=== PATIENT | female | born 1990 | race Caucasian/White ===

== ENCOUNTER 2018-07-03 14:29 | Emergency (ER) | payer MEDICAID ==
[2018-07-03 14:45] VITALS: BP 112/80
--- NOTE | 2018-07-03 15:46 | EDM.PDOC ---
ED HPI GENERAL MEDICAL PROBLEM - General Chief Complaint: [employer] Problem Stated Complaint: ABNORMAL VAGINAL BLEEDING Time Seen by Provider: 07/03/18 15:10 Source of Information: Reports: Patient History Limitations: Reports: No Limitations - History of Present Illness INITIAL COMMENTS - FREE TEXT/NARRATIVE: Birgit presents today for complaints of sudden low pelvic pain, abnormal vaginal bleeding with large blood clots. She reports she was in to urgent care today, had a PAP, STI testing performed around 0900. She went to work and develop sudden vaginal bleeding with large clots and pain. Uterine Pain Score (Numeric/FACES): 5 - Related Data Allergies Allergy/AdvReac Type Severity Reaction Status Date / Time Penicillins Allergy Hives Verified 07/03/18 14:42 Home Meds: Home Meds metFORMIN [Glucophage] 1,000 mg PO BID 07/03/18 [History] Past Medical History HEENT History: Reports: Impaired Vision Respiratory History: Reports: Asthma [employer] History: Reports: Polycystic Ovaries, Psychiatric History: Reports: Depression Endocrine/Metabolic History: Reports: Other (See Below) Other Endocrine/Metabolic History: pituitary gland mass dx 03/10 Dermatologic History: Reports: Other (See Below) Other Dermatologic History: yeasty rash on chest - Infectious Disease History Infectious Disease History: Reports: Chicken Pox - Past Surgical History Female Surgical History: Reports: Section Social & Family History - Tobacco Use Smoking Status *Q: Current Every Day Smoker Years of Tobacco use: 15 Packs/Tins Daily: 1 - Caffeine Use Caffeine Use: Reports: Soda - Recreational Drug Use Recreational Drug Use: No ED ROS GENERAL - Review of Systems Review Of Systems: See Below Constitutional: Denies: Fever, Chills, Malaise, Weakness HEENT: Reports: No Symptoms Respiratory: Reports: No Symptoms Cardiovascular: Reports: No Symptoms Endocrine: Reports: No Symptoms GI/Abdominal: Reports: Abdominal Pain. Denies: Constipation, Diarrhea, Nausea, Vomiting : Reports: Pain, Other (Low pelvic pain, abnormal vaginal bleeding with clots size of quarter) Musculoskeletal: Reports: No Symptoms Skin: Reports: No Symptoms Neurological: Reports: No Symptoms Psychiatric: Reports: No Symptoms Hematologic/Lymphatic: Reports: No Symptoms Immunologic: Reports: No Symptoms ED EXAM, RENAL/ - Physical Exam Exam: See Below Text/Narrative:: Birgit is an alert and oriented 28 year old female presenting for complaints of acute low pelvic pain this morning at work after she was in to the clinic for STI checking. Exam Limited By: No Limitations General Appearance: Alert, WD/WN, Mild Distress Eye Exam: Bilateral Eye: EOMI, Normal Inspection, PERRL Head: Atraumatic, Normocephalic Neck: Normal Inspection, Supple, Non-Tender, Full Range of Motion. No: Lymphadenopathy (R), Lymphadenopathy (L) Respiratory/Chest: No Respiratory Distress, Lungs Clear, Normal Breath Sounds, No Accessory Muscle Use, Chest Non-Tender Cardiovascular: Normal Peripheral Pulses, Regular Rate, Rhythm, No Edema, No Gallop, No Murmur, No Rub GI/Abdominal: Normal Bowel Sounds, No Organomegaly, No Distention, Tender, Other (Tenderness to pelvis with palpation. Negative Wet prep in clinic, STI testing pending from [facility]. No dysuria or chagne in bladder function. ). No: Guarding, Rigid (Female) Exam: Normal External Exam, Adnexal Tenderness, Cervix Motion Tenderness, Vaginal Bleeding. No: Adnexal Mass, Cervical Dilatation, Cervical Lesions, Vaginal Lesions, Vaginal Tears Back Exam: Normal Inspection, Full Range of Motion. No: CVA Tenderness (R), CVA Tenderness (L) Extremities: Normal Inspection, Normal Range of Motion, Non-Tender, No Pedal Edema, Normal Capillary Refill Neurological: Alert, Oriented, CN II-XII Intact, Normal Cognition, Normal Gait, Normal Reflexes, No Motor/Sensory Deficits Psychiatric: Normal Affect, Normal Mood Skin Exam: Warm, Dry, Intact, Normal Color, No Rash Lymphatic: No Adenopathy Course - Vital Signs Last Recorded V/S: Last Vital Signs Temp 37.4 C 07/03/18 14:47 Pulse 86 07/03/18 14:47 Resp 18 07/03/18 14:47 BP 112/80 07/03/18 14:47 Pulse Ox 97 07/03/18 14:47 - Orders/Labs/Meds Orders: Active Orders 24 hr Category Date Time Status Pelvis Non OB Comp [US] Stat Exams 07/03/18 15:40 Taken Transvaginal Non OB [US] Stat Exams 07/03/18 Taken Meds: Medications Discontinued Medications Generic Name Dose Route Start Last Admin Trade Name Freq PRN Reason Stop Dose Admin Azithromycin 1,000 mg 07/03/18 16:39 07/03/18 16:49 Zithromax PO 07/03/18 16:40 1,000 mg ONETIME ONE Administration Ceftriaxone Sodium 500 mg/ 0 mg 07/03/18 16:31 07/03/18 16:51 Lidocaine HCl 1 ml IM 07/03/18 16:32 1 inj ONETIME ONE Administration - Re-Assessments/Exams Free Text/Narrative Re-Assessment/Exam: Pelvic exam completed with Megan SHOEMAKER in room Noted dark blood in vaginal vault with cervical motion tenderness. No purulent discharge or drainage, no lacerations or lesions noted. Significant pelvic pain, exposure to STI, will treat while results are pending. Departure - Departure Time of Disposition: 16:41 Disposition: Home, Self-Care 01 Condition: Good Clinical Impression: Pelvic pain, Sexually transmitted disease exposure, Abnormal vaginal bleeding - Discharge Information *PRESCRIPTION DRUG MONITORING PROGRAM REVIEWED*: No *COPY OF PRESCRIPTION DRUG MONITORING REPORT IN PATIENT AUDELIA: Not Applicable Instructions: Sexually Transmitted Disease, Pelvic Pain, Female Referrals: Vero Allen MD [Primary Care Provider] - Forms: ED Department Discharge Additional Instructions: You have been evaluated and treated in the emergency room for pelvic pain with exposure to sexually transmitted diseases. Pelvic ultrasound was normal. Pelvic exam did not show any lacerations or cuts to the cervix. You may have heavy vaginal bleeding for the next 24 hours. If this gets worse, return for another exam. You were given azithromycin and ceftriaxone in the emergency room which will cover chlamydia and gonorrhea treatment. No need for any other antibiotics at this time. Follow up with clinic tests that have yet to be resulted. Return for worsening, issues or concerns. You can take ibuprofen 800mg by mouth three times a day as needed for pain, cramping. Keep yourself well hydrated. - My Orders Last 24 Hours: My Active Orders 07/03/18 Transvaginal Non OB [US] Stat 07/03/18 15:40 Pelvis Non OB Comp [US] Stat - Assessment/Plan Last 24 Hours: My Active Orders 07/03/18 Transvaginal Non OB [US] Stat 07/03/18 15:40 Pelvis Non OB Comp [US] Stat Assessment:: Sexually transmitted disease exposure Abnormal vaginal bleeding Plan: Patient evaluated and treated in the emergency room for pelvic pain with exposure to sexually transmitted diseases. Pelvic ultrasound was normal. Pelvic exam did not show any lacerations or cuts to the cervix. She may have heavy vaginal bleeding for the next 24 hours. If this gets worse, return for another exam. She was given azithromycin and ceftriaxone in the emergency room which will cover chlamydia and gonorrhea treatment. No need for any other antibiotics at this time. Follow up with clinic tests that have yet to be resulted. Return for worsening, issues or concerns. She can take ibuprofen 800mg by mouth three times a day as needed for pain, cramping. Keep yourself well hydrated.
[2018-07-03] MEDS ORDERED: cefTRIAXone 500 MG, Lidocaine 1% 1 ML IM ONE ×2 (16:31)
[2018-07-03] MEDS ORDERED: Azithromycin 250 MG Tab PO ONE (16:39)
== END 2018-07-03 17:15 | disposition home or self-care (01) ==
LOC: JP.ED 14:29
DX: Z20.2 Contact with and (suspected) exposure to infections with a predominantly sexual mode of transmission (principal); N93.9 Abnormal uterine and vaginal bleeding, unspecified; J45.909 Unspecified asthma, uncomplicated; F17.210 Nicotine dependence, cigarettes, uncomplicated; Z88.0 Allergy status to penicillin
CPT/HCPCS: 76830; 76856; 96372; 99284; A9270; J0696